=== PATIENT | female | born 1960 | race African-American/Black ===

== ENCOUNTER 2024-12-22 07:52 | Emergency (ER) | payer MEDICAID, OTHER ==
[~2024-12-22] VITALS: Ht 162.6 cm; Wt 68.0 kg
[2024-12-22 07:53] VITALS: TEMP 36.7; O2SAT 99
[2024-12-22 08:47] LABS: BASOPHILS % 0.8 % (0.0-2.0); EOSINOPHILS % 0.6 % (0.0-5.0); HEMATOCRIT. 38.5 % (36.0-48.0); HEMOGLOBIN. 12.1 g/dL (12.0-16.0); LYMPHOCYTES % 21.3 % (20.0-50.0); MEAN CORPUSCULAR HEMOGLOBIN 25.8 pg (28.0-32.0); MEAN CORPUSCULAR HGB CONC 31.4 g/dL (31.0-37.0); MONOCYTES % 5.2 % (2.0-8.0); NEUTROPHILS % 72.1 % (40.0-76.0); PLATELET 273 x1000/uL (130-400); RED BLOOD CELL COUNT 4.69 mill/uL (4.2-5.4); RED CELL DISTRIBUTION WIDTH 14.6 % (11.6-14.6); WHITE BLOOD COUNT 7.8 x1000/uL (4.5-11.0)
[2024-12-22 08:51] LABS: CHLORIDE 105 mEq/L (98-107); POTASSIUM 3.3 mEq/L (3.5-5.1); SODIUM 143 mEq/L (136-145)
[2024-12-22 08:52] LABS: CALCIUM 10.3 mg/dL (8.7-10.4); CARBON DIOXIDE 28 mEq/L (21-32)
[2024-12-22 08:57] LABS: GLUCOSE 123 mg/dL (70-105); UREA NITROGEN BLOOD 20 mg/dL (9-23)
[2024-12-22 08:58] LABS: TROPONIN I HIGH SENSITIVITY 6 ng/L (3.0-34)
[2024-12-22 08:59] LABS: ALANINE AMINOTRANSFERASE 17 IU/L (10-49); ALBUMIN 4.1 g/dL (3.2-4.8); ASPARTATE AMINOTRANSFERASE 27 IU/L (<34); BILIRUBIN DIRECT < 0.1 mg/dL (<=3.0); BILIRUBIN TOTAL 0.4 mg/dL (0.1-1.0)
[2024-12-22] MEDS: ONDANSETRON HCL 4MG/2ML INJ IV ONE (09:10)
[2024-12-22] MEDS: MECLIZINE 25MG TABLET PO ONE (09:10)
[2024-12-22 09:17] VITALS: BP 147/78; PULSE 75; O2SAT 100
[2024-12-22 09:21] VITALS: RESP 18
[2024-12-22] MEDS ORDERED: ONDA-239 PO (09:23)
[2024-12-22] MEDS ORDERED: MECL-299 MT (09:23)
== END 2024-12-22 09:23 | disposition home or self-care (01) ==
LOC: ER 07:52
DX: H93.12 Tinnitus, left ear (principal); R42 Dizziness and giddiness; I10 Essential (primary) hypertension; Z79.899 Other long term (current) drug therapy; Z88.0 Allergy status to penicillin
CPT/HCPCS: 99285; 96374; 70450; 71045; 80076; 80048; 85025; 84484; 36415; 93005; J8597; J2405